=== PATIENT | female | born 1970 | race Caucasian/White ===

== ENCOUNTER 2016-12-25 19:55 | Emergency (ER) | payer SELFPAY ==
[2016-12-25 20:56] LABS: URINE BILIRUBIN NEGATIVE (NEGATIVE); URINE BLOOD TRACE (NEGATIVE); URINE GLUCOSE (UA) NEGATIVE (NEGATIVE); URINE LEUKOCYTE ESTERASE NEGATIVE (NEGATIVE); URINE NITRITE POSITIVE (NEGATIVE); URINE PROTEIN 2+ (NEGATIVE); URINE UROBILINOGEN NORMAL (0-1 mg/dl)
[2016-12-25 21:00] LABS: ABSOLUTE NEUTROPHIL COUNT 7.1 K/mm3 (1.8-7.7); BASO # 0.1 K/mm3 (0.0-0.2); BASO % 0.6 % (0.2-1.0); EOS # 0.1 (0.0-0.5); EOS % 1.3 % (0.9-2.9); HEMATOCRIT 45.7 % (37.0-47.0); HEMOGLOBIN 15.4 gm/l (12.0-16.0); IMM NEUT # 0.1 K/mm3 (0-0.2); IMM NEUT% 0.5 % (0-1); LYMPH # 2.3 (1.0-4.8); LYMPH % 22.1 % (15-45); MEAN CELL VOLUME 92.1 fl (81.0-99.0); MEAN CORPUSCULAR HGB CONC 33.7 g/dl (33.0-37.0); MEAN PLATELET VOLUME 10.4 fl (7.4-10.4); MONO # 0.7 (0.0-0.8); MONO % 6.9 % (4-12); NEUT % 68.6 % (43-75); PLATELET COUNT 308 K/mm3 (130-400); RED CELL DISTRIBUTION WIDTH 12.2 % (11.5-14.5)
[2016-12-25 21:13] LABS: URINE APPEARANCE SL CLOUDY; URINE COLOR YELLOW
[2016-12-25 21:13] LABS: TROPONIN I < 0.01 ng/ml (0.0-0.06)
[2016-12-25 21:14] LABS: ALB/GLOB RATIO 1.6 (>1.0); ALBUMIN 4.9 gm/dL (3.5-5.7); MAGNESIUM 1.9 mg/dL (1.9-2.7)
[2016-12-25 21:17] LABS: CKMB ISOENZYME 6.5 ng/ml (0.6-6.3)
[2016-12-25 21:22] LABS: URINE RBC 0-2 /hpf
[2016-12-25 21:23] LABS: URINE BACTERIA 4+; URINE EPITHELIAL CELLS 0-3 /hpf
[2016-12-25] MEDS ORDERED: PROCHLORPERAZINE 5 MG/ML 2 ML VIAL ONE (21:45)
[2016-12-25] MEDS ORDERED: MAGNESIUM SULFATE 1 G/100 ML 200 ML IV ONE (21:45)
[2016-12-25] MEDS ORDERED: KETOROLAC TROMETHAMINE 15 MG/ML VIAL ONE (21:45)
[2016-12-25] MEDS ORDERED: DEXAMETHASONE SOD PHOS 10 MG/1 ML VIAL ONE (21:45)
[2016-12-25] MEDS ORDERED: DIPHENHYDRAMINE HCL 50 MG/1 ML VIAL ONE (22:11)
== END 2016-12-25 23:57 | disposition home or self-care (01) ==
LOC: ED 19:55
DX: R51 Headache (principal); I10 Essential (primary) hypertension; Z86.73 Personal history of transient ischemic attack (TIA), and cerebral infarction without residual deficits
CPT/HCPCS: 85025; 82553; 87086; 80053; 87186; 83735; 84484; 81001; 96375 ×4; 99284 ×2; 96365; 96366; 93005; J1200; J0780; J1100; J3475; J1885